=== PATIENT | male | born 1990 | race Caucasian/White ===

== ENCOUNTER 2021-10-18 17:27 | Emergency (ER) | payer OTHER, SELFPAY ==
--- NOTE | 2021-10-18 17:38 | ED.URI ---
HPI - URI/Sore Throat General Chief Complaint: Upper Respiratory Infection Stated Complaint: cough,sore throat,ear pain Time Seen by Provider: 10/18/21 17:39 History of Present Illness HPI Narrative: Patient is a 31-year-old male who presents the urgent care with complaints of a sore throat, cough, bilateral ear pain. Patient states that it started on Monday, he felt a little better on Monday, and then worse this afternoon. Patient has been taking ibuprofen. Denies any fever, nausea or vomiting. Patient has been COVID vaccinated and denies of any recent ill exposures. No other acute complaints. No acute distress noted. Patient aware of the plan of care. Some parts of this dictation were generated by voice recognition software and may contain typographical and/or grammatical inaccuracies. Related Data Home Medications Medication Instructions Recorded Confirmed No Home Medications 10/18/21 10/18/21 Allergies Allergy/AdvReac Type Severity Reaction Status Date / Time No Known Allergies Allergy Verified 10/18/21 18:02 Review of Systems Review of Systems: CONSTITUTIONAL: Denies fever, chills, or sweats. EYES: Denies visual changes, redness, or discharge. ENT: Reports of postnasal drainage, congestion and sore throat with bilateral otalgia CARDIOVASCULAR: Denies chest pain, palpitations, or edema. RESPIRATORY: Reports of cough without dyspnea GASTROINTESTINAL: Denies abdominal pain, nausea, vomiting, or diarrhea. GENITOURINARY: Denies dysuria or hematuria. SKIN: Denies rash or itching. MUSCULOSKELETAL: Denies back pain, joint pain, or myalgia. NEUROLOGIC: Denies headache, numbness, or weakness. All other systems reviewed are negative, except as documented in HPI. PMFSH Comments At the time of my signature, I reviewed and agree with the nursing past medical, surgical, social, and family history. There is no relevant family history pertinent to the patient complaint. Exam Narrative: GENERAL: This is a well-nourished, well-developed patient, in no apparent distress. HEAD: normocephalic, atraumatic. EYES: PERRL. Sclera clear/white. Vision is grossly intact. EARS: External ears normal, auditory canals clear and without drainage, TMs normal without perforation. Hearing grossly intact. NOSE: External nose normal with no obvious nasal discharge, nares without redness, yellow rhinorrhea. THROAT: Mucous membranes moist, posterior pharynx clear. Moderate erythema noted posterior oropharynx with moderate postnasal drainage NECK: Neck supple, non-tender without lymphadenopathy CARDIOVASCULAR: Regular rate and rhythm without murmurs, gallops, or rubs. RESPIRATORY: Clear to auscultation. Breath sounds equal bilaterally. No wheezes, rales, or rhonchi. SKIN: warm, intact with no suspicious lesions or rash, good texture and turgor. NEURO: awake, alert, and oriented to person, place and time. There were no obvious focal neurologic abnormalities. EXTREMITIES: No clubbing, cyanosis, or edema. Course Course Level of Care: Express Care Visit Vital Signs Vital signs: Vital Signs Temperature 99.4 F 10/18/21 17:41 Pulse Rate 85 10/18/21 17:41 Respiratory Rate 16 10/18/21 17:41 Blood Pressure 137/87 10/18/21 17:41 Pulse Oximetry 100 10/18/21 17:41 Oxygen Delivery Room Air 10/18/21 17:41 Temperature 99.4 F 10/18/21 17:41 Pulse Rate 85 10/18/21 17:41 Respiratory Rate 16 10/18/21 17:41 Blood Pressure 137/87 10/18/21 17:41 Pulse Oximetry 100 10/18/21 17:41 Oxygen Delivery Room Air 10/18/21 17:41 Reviewed MDM - URI/Sore Throat MDM Narrative Medical decision making narrative: Reviewed lab results with the patient. He is aware that strep swab was negative. Educated patient on culture we will call within 72 hours if culture is positive and antibiotics are necessary. Flu swab was also negative. It is highly likely you may be positive for COVID-19. Therefore I would follow recommendations o
[2021-10-18 17:41] VITALS: BP 137/87; PULSE 85; RESP 16; TEMP 37.4; O2SAT 100
[2021-10-19 21:06] LABS: SARS-CoV-2 RNA PCR Positive
== END 2021-10-18 18:37 | disposition home or self-care (01) ==
PROVIDERS: Emergency Provider Nurse Practitioner Family; PCP Internal Medicine
DX: U07.1 COVID-19 (principal)
CPT/HCPCS: 87081; 87804; 87880; 99213; C9803; G0463; U0003; U0005